=== PATIENT | male | born 1940 | race Caucasian/White ===

== ENCOUNTER → 2016-08-20 09:51 | Day surgery (SDC) | payer MEDICARE, BC ==
[~2016-08-20 09:51] MED LIST: Buffered Lidocaine 1% SYR 3ML* 3 ML/SYR SYRINGE INTRADERM ONE; Bupivacaine 0.25% W/EPI* 50 ML VIAL ONE; Bupivacaine 0.5% W/EPI SDV* 30 ML VIAL ONE; Famotidine IV* 10 MG/ML 2 ML (20 mg) IV ONE; Famotidine IV* 10 MG/ML 2 ML (20 mg) ONE; HYDROcodone/ACETAMIN 5-325 MG* 1 TAB PO PRN; Ibuprofen TAB* 600 MG PO PRN; KETAMINE HCL* 50 MG/ML 10 ML VIAL ONE; Lidocain 1% EPI 1:100,000 * 30 ML MDV ONE; Lidocaine 1% INJ* 10 MG/ML 30 ML SDV ONE; Lidocaine 2% PF * 5 ML VIAL ONE; Midazolam* 1 MG/ML 5 ML VIAL (5 MG) ONE; Morphine INJ* 2 MG/ML 1 ML CARPUJECT IV PRN; Ondansetron INJ* 2 MG/ML VIAL ONE; PROCHLORPERAZINE INJ 5 MG/ML 2 ML VIAL IV PRN; Propofol* 10 MG/ML 20 ML BTL IV PUSH ONE; ceFAZolin 2 GM PREMIX (*) 2 GM/50 ML BAG IVPB ONE; fentaNYL* 50 MCG/ML 2 ML VIAL (100 MCG VIAL) IV PRN; fentaNYL* 50 MCG/ML 2 ML VIAL (100 MCG VIAL) ONE; oxyCODONE/Acetamin 5/325 MG* TAB PO PRN
--- NOTE | 2016-08-20 13:15 | RAD ---
INDICATION: PowerPort placement COMPARISON: None FINDINGS: 8.2 seconds of fluoroscopy were provided for the surgical department. Fluoroscopic spot imaging of the chest were obtained for operative control and show left-sided PowerPort placement. A follow-up chest x-ray is pending . CPT II Codes: 6045F (fluoro time doc)
--- NOTE | 2016-08-20 13:54 | RAD ---
Indication: Postop port placement. T-cell lymphoma. Comparison: August 13, 2016 CT. Technique: Upright AP 1342 hours Report: Tip of LEFT chest port is at the level of the superior vena cava RIGHT atrial junction directed central. Negative for pneumothorax. Clear lungs and pleural spaces. The heart, pulmonary vasculature, and mediastinal contours are unremarkable. Post procedural subcutaneous emphysema noted at the LEFT supraclavicular region. IMPRESSION: Negative for pneumothorax post LEFT chest port placement.
[2016-08-20 14:50] VITALS: BP 120/74
--- NOTE | 2016-08-21 12:51 | OP ---
DATE OF OPERATION: 08/20/16 [facility] DATE OF : 40 SURGEON: Jose Chan MD INSTALLER MOLDING AND TRIM: None. ANESTHESIOLOGIST: Dr. Molina. ANESTHESIA: Local MAC. PRE-OP DIAGNOSIS: Lymphoma. POST-OP DIAGNOSIS: Lymphoma. OPERATIVE PROCEDURE: PowerPort placement, left subclavian and left supraclavicular excisional lymph node biopsy. ESTIMATED BLOOD LOSS: Minimal. IV FLUIDS: Crystalloids. SPECIMEN: Left supraclavicular lymph node. DRAINS: None. COMPLICATIONS: None. COUNTS: The instrument, needle, and sponge counts were correct. DESCRIPTION OF PROCEDURE: The patient was brought to the operating room and placed on the table supine. Sequential compression devices were placed on both lower extremities. He was administered intravenous sedation. His chest and neck were prepped and draped in the usual sterile fashion. He received appropriate antibiotics and time-out was performed. Local anesthetic was infiltrated for a left subclavian approach for the PowerPort placement. The left subclavian vein was cannulated after several passes with an 18- gauge needle and the guidewire was positioned in the superior vena cava under fluoroscopic guidance. The pocket was created for the port by infiltrating anesthetic into the upper left chest creating a transverse incision with a 15-blade scalpel and elevating the subcutaneous tissues off of the pectoralis. Once the pocket had been created and hemostasis assured, a counterincision was made at the guidewire insertion site and then 8-German PowerPort was back tunneled to the pocket. The dilator and peel-away sheath were advanced into the superior vena cava under fluoroscopic guidance and the dilator and the wire were removed. The catheter was inserted into the superior vena cava and its position confirmed under fluoroscopic guidance. The catheter was positioned at 23 cm. Then it was connected to the PowerPort and placed into the pocket. It was drawn and flushed easily. The port was secured in the pocket with a single suture of 2-0 Surgipro. The pocket was then closed with 3- 0 Polysorb in an interrupted fashion to close the subcutaneous tissues. The skin incisions were closed with 4-0 Monocryl in a subcuticular fashion. Next, the excision of lymph node biopsy was performed. A curvilinear incision was made along the collar line overlying the area of the palpable lymph node in the supraclavicular fossa. The subcutaneous tissues were divided with cautery as was the platysmal muscle. The lymph node was identified. It was bluntly dissected out and elevated from the underlying tissues, which included blood vessels coursing close by this. The lymph node was lentiform, approximately 1 cm x 1 cm x 0.5 cm. It was elevated off of the underlying structures dissected using a combination of blunt and sharp dissection with ligation of crossing lymphatics with either 4-0 Polysorb or with surgical clips. Once the lymph node was freed, it was sent fresh down to pathology for processing. Hemostasis was assured. The wound was closed with 3-0 Polysorb to close the platysma in a running fashion and the skin was again closed with 4-0 Monocryl in a running subcuticular fashion. Steri-Strips were applied to the sites with Tegaderm dressings. The patient tolerated the procedure well. He was transferred to the recovery room in a stable condition. CC: Yobany Green MD; Kuldip Flores MD * [id number]/[facility] #: [id number] [facility]
[2016-09-02 17:33] LABS: BLYMF Reason for Referral r/o double hit; BLYMF Tissue ID S17 1469
== END | disposition home or self-care (01) ==
LOC: OR 09:51
PROVIDERS: ATTEND Surgery
DX: C85.11 Unspecified B-cell lymphoma, lymph nodes of head, face, and neck (principal); I10 Essential (primary) hypertension; Z87.891 Personal history of nicotine dependence
CPT/HCPCS: 71010; 76000; 88184; 88185; 88188; 88271; 88275; 88291; 88307; 88341; 88342; C1788; J0690; J1642; J2250; J2405; J2704; J3010

== ENCOUNTER 2017-06-14 09:04 | Inpatient (IN) | payer MEDICARE, BC ==
[2017-06-14] MEDS ORDERED: oxyCODONE/Acetamin 5/325 MG* TAB PO PRN (10:39)
[2017-06-14] MEDS ORDERED: Acetaminophen TAB* 325 MG PO PRN (10:39)
[2017-06-14] MEDS ORDERED: Ondansetron INJ* 2 MG/ML VIAL IV PRN (10:39)
[2017-06-14] MEDS ORDERED: Senna TAB PO PRN (10:51)
[2017-06-14] MEDS ORDERED: QUEtiapine TAB* 100 MG PO PRN (10:51)
[2017-06-14] MEDS ORDERED: NS 0.9% 1000 ML* 1,000 ML IV ONE (12:00)
[2017-06-14] MEDS: Heparin VIAL(*) 5000 UNITS/ML VIAL (FIVE THOUSAND) SUBCUT SCH ×2 (12:39→21:46)
[2017-06-14] MEDS ORDERED: NS 0.9% IVPB ONE (14:00)
[2017-06-14] MEDS ORDERED: IFOSFAMIDE IVPB ONE (14:00)
[2017-06-14] MEDS ORDERED: MESNA IVPB ONE (14:00)
[2017-06-14] MEDS ORDERED: Allopurinol TAB* 300 MG PO SCH (18:00)
[2017-06-14] MEDS ORDERED: Lisinopril TAB* 10 MG PO SCH (21:00)
[2017-06-14] MEDS ORDERED: Zolpidem TAB* 10 MG PO SCH (21:00)
[2017-06-14] MEDS: Senna TAB PO SCH (21:46)
[2017-06-14] MEDS: Docusate CAP* 100 MG PO SCH (21:46)
[2017-06-15] MEDS: Heparin VIAL(*) 5000 UNITS/ML VIAL (FIVE THOUSAND) SUBCUT SCH ×2 (06:25→13:56)
[2017-06-15] MEDS: Docusate CAP* 100 MG PO SCH (08:51)
[2017-06-15] MEDS: Senna TAB PO SCH (08:51)
[2017-06-15] MEDS ORDERED: Atorvastatin* 10 MG TAB PO SCH (09:00)
[2017-06-15 11:20] LABS: Urine Bacteria Absent (Absent); Urine Bilirubin Negative (Negative); Urine Glucose 1+(50 mg/dL) (Negative); Urine Nitrite Negative (Negative)
[2017-06-15] MEDS ORDERED: Dexamethasone IV* 4 MG/ML 1 ML (4 MG) IV SLOW PU ONE (13:30)
[2017-06-15] MEDS ORDERED: ETOPOSIDE IVPB ONE (14:00)
[2017-06-15] MEDS ORDERED: NS 0.9% IVPB ONE (14:00)
[2017-06-15] MEDS ORDERED: NS 0.9% 1000 ML* 1,000 ML IV ONE (14:00)
--- NOTE | 2017-06-15 14:20 | DS ---
- Discharge Summary Admission Date: 06/14/2017 Discharge Date: 06/15/2017 Discharge Diagnosis: 1. Diffuse Large B-cell Lymphoma: recently recurrent, completing C1 RICE 2. Insomnia: seroquel appears to help Discharge Medications: 1. Acetaminophen 650 mg PO q4hrs PRN pain/fever 2. Colace 100 mg PO BID 3. Senna 1 tab PO BID 4. Seroquel 100 mg PO qHS PRN insomnia 5. Lisinopril 20 mg PO qPM 6. Simvastatin 20 mg PO daily 7. Zofran 4 mg PO q4hrs PRN nausea/vomiting 8. Compazine 10 mg PO q6hrs PRN nausea/vomiting 9. Filgrastin as instructed Hospital Course: Please see admission note for full H&P, however, briefly Mr. Stephenson is well known to our service d/t his unfortunate diagnosis of Large B-cell Lymphoma initially diagnosed in early 2016 and treated with RCHOP. Unfortunately he recently relapsed and has been started on induction treatment with plan for consultation in [place] for possible transplant. He started RICE chemotherapy on Sunday 06/10 (D1 minus 2) with Day 1 in the office on 06/13. He was treated as an outpatient through Day 2 at which time he was admitted for overnight ifos/[place]. He has done very well with this initial treatment with minimal side effects. He will complete cycle 1 today following Etoposide infusion and will be discharged home. He has been instructed to initiate Neupogen injections daily starting tomorrow (D4), though currently insurance approval is pending and he may require administration in the office (and this will be confirmed just prior to d/c). He has been instructed on how and when to call the office and will f/u on 06/23 with labs. All questions were answered. >40 min spent with >50% face to face counseling
[2017-06-15 17:48] VITALS: BP 143/68
== END 2017-06-15 17:30 | disposition home or self-care (01) | DRG 847 ==
LOC: INTOOBSV 10:39 → MED 10:39 → OBSVTOIN 10:39
PROVIDERS: ADMIT Internal Medicine Hematology & Oncology; ATTEND Internal Medicine Hematology & Oncology
DX: Z51.11 Encounter for antineoplastic chemotherapy (principal); C83.33 Diffuse large B-cell lymphoma, intra-abdominal lymph nodes; H91.93 Unspecified hearing loss, bilateral; E78.5 Hyperlipidemia, unspecified; I10 Essential (primary) hypertension; G47.00 Insomnia, unspecified; Z82.49 Family history of ischemic heart disease and other diseases of the circulatory system; Z80.0 Family history of malignant neoplasm of digestive organs
CPT/HCPCS: 36415; 36591; 62270; 80053; 81003; 81015; 82945; 83735; 84100; 84157; 85025; 87086; 88112; 88184; 88187; 88188; 89051; 96375; 96413; 96415; 96417; 99215; 99223; A9270-GY; G0463; J1100; J1200; J1642; J1644; J2469; J9045; J9181; J9209; J9280; J9310

== ENCOUNTER 2017-07-06 10:54 | Observation (INO) | payer MEDICARE, BC ==
[2017-07-06] MEDS ORDERED: [UNRECOGNIZED DRUG - OTHER] IV ONE (12:15)
[2017-07-06] MEDS ORDERED: NS 0.9% IV ONE (12:15)
[2017-07-06] MEDS ORDERED: Acetaminophen TAB* 325 MG PO PRN (12:24)
[2017-07-06] MEDS ORDERED: MESNA IVPB ONE (14:00)
[2017-07-06] MEDS ORDERED: IFOSFAMIDE IVPB ONE (14:00)
[2017-07-06] MEDS ORDERED: NS 0.9% IVPB ONE (14:00)
[2017-07-06] MEDS: Heparin VIAL(*) 5000 UNITS/ML VIAL (FIVE THOUSAND) SUBCUT SCH ×2 (14:28→21:28)
[2017-07-06] MEDS ORDERED: Senna TAB PO PRN (15:35)
[2017-07-06] MEDS ORDERED: Prochlorperazine TAB* 10 MG PO PRN (15:35)
[2017-07-06] MEDS ORDERED: Ondansetron TAB* 4 MG PO PRN (15:35)
[2017-07-06] MEDS ORDERED: Zolpidem TAB* 10 MG PO PRN (15:37)
[2017-07-06] MEDS ORDERED: QUEtiapine TAB* 100 MG PO SCH (21:00)
[2017-07-07] MEDS: Heparin VIAL(*) 5000 UNITS/ML VIAL (FIVE THOUSAND) SUBCUT SCH ×2 (06:15→14:28)
[2017-07-07] MEDS ORDERED: Lisinopril TAB* 10 MG PO SCH (09:00)
[2017-07-07 09:38] LABS: ABS Basophils 0 10^3/ul (0-0.2); ABS Eosinophils 0 10^3/ul (0-0.6); ABS Lymphocytes 0.2 10^3/ul (1.0-4.8); ABS Monocytes 0.3 10^3/ul (0-0.8); ABS Neutrophils 2.8 10^3/ul (1.5-7.7); ABS Nucleated RBC 0 10^3/ul; Eosinophil % 0.1 % (0-6); Hematocrit 21 % (42-52); Hemoglobin 6.9 g/dl (14.0-18.0); Lymphocyte % 5.4 % (25-47); Mean Corpuscular HGB Conc 33 g/dl (31-36); Mean Corpuscular Hemoglobin 30 pg (27-31); Mean Corpuscular Volume 91 fL (80-94); Mean Platelet Volume 7 um3 (7.4-10.4); Nucleated Red Blood Cells % 0; Platelet Count 360 10^3/ul (150-450); Red Blood Count 2.28 10^6/ul (4.0-5.4); Red Cell Distribution Width 14 % (10.5-15); White Blood Count 3.3 10^3/ul (3.5-10.8)
[2017-07-07] MEDS ORDERED: ETOPOSIDE IVPB ONE (14:00)
[2017-07-07] MEDS ORDERED: Dexamethasone IV* 4 MG/ML 1 ML (4 MG) IV SLOW PU ONE (14:00)
[2017-07-07] MEDS ORDERED: [UNRECOGNIZED DRUG - OTHER] IV ONE (14:00)
[2017-07-07] MEDS ORDERED: NS 0.9% IV ONE (14:00)
[2017-07-07] MEDS ORDERED: NS 0.9% IVPB ONE (14:00)
[2017-07-07 18:03] VITALS: BP 146/82
--- NOTE | 2017-07-08 09:53 | DS ---
DISCHARGE SUMMARY: DATE OF ADMISSION: 07/06/17 DATE OF DISCHARGE: 07/07/17 ATTENDING PHYSICIAN: Dr. Farheen Almodovar * (DICTATED BY LAN BROWNE NP) ADMISSION DIAGNOSES: 1. Recurrent lymphoma: Admitted for cycle 2 RICE. 2. Insomnia: Managed with current medications. DISCHARGE MEDICATIONS: 1. Neupogen 300 mcg subcutaneous x5 to 7 days depending on the patient's counts. 2. Seroquel 100 mg p.o. q.h.s. 3. Lisinopril 20 mg p.o. q. day. 4. Zofran 4 mg p.o. q.4 hours p.r.n. nausea. 5. Diazepam 10 mg p.o. q.h.s. p.r.n. sleep. 6. Compazine 10 mg p.o. q.6 hours p.r.n. nausea. 7. Acetaminophen 650 mg p.o. q.4 hours p.r.n. fever/pain, greater than 100.4 degrees Fahrenheit. 8. Senna 1 to 2 tabs p.o. b.i.d. p.r.n. constipation. HOSPITAL COURSE: Please see admission note for full H and P; however, briefly, Mr. Stephenson is well known to our service due to his unfortunate diagnosis of lymphoma, recently recurred. He admitted to the hospital 07/06/17 for completion of continuous infusion overnight treatment of cycle 2 RICE. On admission, Mr. Stephenson was feeling very well with a low H and H and he denied symptoms of severe fatigue and shortness of breath, noting the day prior he had worked most of the day outside. As such, without symptoms, his labs were monitored.. Mr. Stephenson received his treatment without difficulty and no complaints. He has had minimal side effects. On day of discharge, his H and H had dropped with the hemoglobin of 6.9 and the patient was agreeable to a transfusion. Risks and benefits were reviewed with the patient and 1 unit of packed red blood cells was transfused this afternoon. Completion of chemotherapy at approximately 1800 and the patient was discharged home with plan for Neupogen starting tomorrow, 07/08/17. He will follow up with Dr. Flores on 07/15/17 and will have repeat labs at that time. Mr. Stephenson is aware of signs and symptoms to contact the office for and denies questions. TIME SPENT: Greater than 40 minutes spent with greater than 50% [id number] counseling. [place] BROWNE NP [id number]/[facility] #: [id number] JOSEFINA
== END 2017-07-07 18:55 | disposition home or self-care (01) ==
LOC: MED 12:09
PROVIDERS: ADMIT Internal Medicine Hematology & Oncology; ATTEND Internal Medicine Hematology & Oncology
DX: Z51.11 Encounter for antineoplastic chemotherapy (principal); C85.90 Non-Hodgkin lymphoma, unspecified, unspecified site; C83.33 Diffuse large B-cell lymphoma, intra-abdominal lymph nodes; G47.00 Insomnia, unspecified; E78.5 Hyperlipidemia, unspecified; I10 Essential (primary) hypertension; Z87.891 Personal history of nicotine dependence
CPT/HCPCS: 36415; 36430; 36591; 85025; 86850; 86900; 86901; 86922; 96372; 96375; 96413; 96417; 99214; 99223; 99239; A9270-GY; G0378; G0463; J1100; J1642; J1644; J9045; J9181; J9209; J9280; P9040

== ENCOUNTER 2017-07-27 07:54 | Observation (INO) | payer MEDICARE, BC ==
[2017-07-27] MEDS ORDERED: Prochlorperazine TAB* 10 MG PO PRN (13:04)
[2017-07-27] MEDS ORDERED: Diazepam TAB(*) 10 MG PO PRN (13:04)
[2017-07-27] MEDS ORDERED: Acetaminophen TAB* 325 MG PO PRN ×2 (13:04→13:06)
[2017-07-27] MEDS ORDERED: Senna TAB PO PRN (13:04)
[2017-07-27] MEDS ORDERED: Ondansetron INJ* 2 MG/ML VIAL IV PRN (13:06)
[2017-07-27] MEDS ORDERED: oxyCODONE/Acetamin 5/325 MG* TAB PO PRN (13:06)
[2017-07-27] MEDS ORDERED: NS 0.9% 1000 ML* 1,000 ML IV SCH (13:15)
[2017-07-27] MEDS ORDERED: IFOSFAMIDE IVPB ONE (13:30)
[2017-07-27] MEDS ORDERED: NS 0.9% IVPB ONE (13:30)
[2017-07-27] MEDS ORDERED: MESNA IVPB ONE (13:30)
[2017-07-27] MEDS: Enoxaparin(*) 40 MG/0.4 ML SYR SUBCUT SCH (14:39)
[2017-07-27 14:51] LABS: Urine Appearance Clear; Urine Blood Negative (Negative); Urine Color Straw; Urine Ketones Trace (Negative); Urine Protein Negative (Negative); Urine Specific Gravity 1.008 (1.010-1.030); Urine Urobilinogen Negative (Negative)
[2017-07-27] MEDS ORDERED: QUEtiapine TAB* 25 MG PO SCH (21:00)
[2017-07-28 08:20] VITALS: BP 135/74
[2017-07-28 08:40] LABS: ABS Basophils 0 10^3/ul (0-0.2); ABS Eosinophils 0 10^3/ul (0-0.6); ABS Lymphocytes 0.4 10^3/ul (1.0-4.8); ABS Monocytes 0.4 10^3/ul (0-0.8); ABS Neutrophils 3.4 10^3/ul (1.5-7.7); ABS Nucleated RBC 0 10^3/ul; Eosinophil % 0 % (0-6); Hematocrit 24 % (42-52); Lymphocyte % 9.2 % (25-47); Mean Corpuscular HGB Conc 33 g/dl (31-36); Mean Corpuscular Hemoglobin 30 pg (27-31); Mean Corpuscular Volume 90 fL (80-94); Mean Platelet Volume 8 um3 (7.4-10.4); Nucleated Red Blood Cells % 0; Platelet Count 192 10^3/ul (150-450); Red Blood Count 2.68 10^6/ul (4.0-5.4); Red Cell Distribution Width 15 % (10.5-15); White Blood Count 4.2 10^3/ul (3.5-10.8)
--- NOTE | 2017-07-28 10:13 | DS ---
- Discharge Summary Brief OBV discharge summary Admit date: 07/27/2017 discharge date: 07/28/2017 discharge diagnoses: 1. inpatient chemotherapy 2. relapsed diffuse large b cell lymphoma discharge medications: Home Medications Medication Instructions Recorded Confirmed Type QUEtiapine TAB* [Seroquel TAB*] 100 mg PO BEDTIME 08/09/16 07/27/17 History Compazine Tab* 10 mg PO Q6HR PRN 06/14/17 07/27/17 History Diazepam 10 mg PO BEDTIME PRN 06/14/17 07/27/17 History Zofran 4 MG TAB 4 mg PO Q4HR PRN 06/14/17 07/27/17 History Acetaminophen TAB* [Tylenol TAB*] 650 mg PO Q4H PRN tab 06/15/17 07/27/17 Rx Senna TAB* [Senokot TAB*] 1 - 2 tab PO BID PRN 07/05/17 07/27/17 History Potassium Chlor TAB* [Potassium 20 meq PO DAILY 07/27/17 07/27/17 History Chlor TAB 20 MEQ*] Filgrastim [Neupogen] 300 mcg IJ DAILY 10 Days inj 07/28/17 Rx discharge follow up: PET scan followed by Dr. Flores 08/09 at 12:40 pm hospital course: see full admit H+P, briefly 77 yo M w recurrent DLBCL presenting for cycle 3 of salvage R-ICE chemotherapy. He tolerated this quite well and will be discharged home to start neupogen per protocol. He will have an outpatient PET scan and follow up with Dr. Flores to decide next course of treatment.
[2017-07-28] MEDS: Dexamethasone IV* 4 MG/ML 1 ML (4 MG) IV SLOW PU ONE ×2 (14:00→14:56)
[2017-07-28] MEDS: Enoxaparin(*) 40 MG/0.4 ML SYR SUBCUT SCH (14:00)
[2017-07-28] MEDS ORDERED: [UNRECOGNIZED DRUG - OTHER] IV ONE (14:00)
[2017-07-28] MEDS ORDERED: ETOPOSIDE IVPB ONE (14:00)
[2017-07-28] MEDS ORDERED: NS 0.9% IV ONE (14:00)
[2017-07-28] MEDS ORDERED: NS 0.9% IVPB ONE (14:00)
== END 2017-07-28 17:33 | disposition home or self-care (01) ==
LOC: INTOOBSV 12:45 → MEDTELE 12:45
PROVIDERS: ADMIT Internal Medicine Hematology & Oncology; ATTEND Internal Medicine Hematology & Oncology
DX: C83.30 Diffuse large B-cell lymphoma, unspecified site (principal); Z51.11 Encounter for antineoplastic chemotherapy; Z87.891 Personal history of nicotine dependence
CPT/HCPCS: 36415; 81003; 85025; 99217; 99220; A9270-GY; G0378; J1100; J1642; J1650; J9181; J9209; J9280

== ENCOUNTER 2017-08-23 20:50 | Inpatient (IN) | payer MEDICARE, BC ==
[2017-08-23 23:16] LABS: ABS Basophils 0 10^3/ul (0-0.2); ABS Eosinophils 0 10^3/ul (0-0.6); ABS Lymphocytes 0.4 10^3/ul (1.0-4.8); ABS Monocytes 0.4 10^3/ul (0-0.8); ABS Neutrophils 4.1 10^3/ul (1.5-7.7); ABS Nucleated RBC 0 10^3/ul; Eosinophil % 0.1 % (0-6); Hematocrit 26 % (42-52); Hemoglobin 8.6 g/dl (14.0-18.0); Lymphocyte % 7.5 % (25-47); Mean Corpuscular HGB Conc 33 g/dl (31-36); Mean Corpuscular Hemoglobin 32 pg (27-31); Mean Corpuscular Volume 97 fL (80-94); Mean Platelet Volume 8 um3 (7.4-10.4); Nucleated Red Blood Cells % 0.1; Platelet Count 133 10^3/ul (150-450); Red Blood Count 2.68 10^6/ul (4.0-5.4); Red Cell Distribution Width 24 % (10.5-15); White Blood Count 4.9 10^3/ul (3.5-10.8)
[2017-08-24] MEDS ORDERED: NS 0.9% 1000 ML* 1,000 ML IV ONE ×2 (00:13→01:32)
[2017-08-24 01:28] LABS: Urine Appearance Clear; Urine Blood Negative (Negative); Urine Color Yellow; Urine Ketones Trace (Negative); Urine Protein 1+(30 mg/dL) (Negative); Urine Specific Gravity 1.017 (1.010-1.030); Urine Urobilinogen Negative (Negative)
[2017-08-24] MEDS ORDERED: Ondansetron INJ* 2 MG/ML VIAL IV ONE (01:31)
[2017-08-24] MEDS ORDERED: Metoclopramide IV* 5 MG/ML 2 ML VIAL IV ONE (03:27)
[2017-08-24] MEDS ORDERED: Iodixanol* (CONTRAST) 320 MG/ML 100 ML SDV IV ONE (04:08)
[2017-08-24] MEDS ORDERED: Ondansetron INJ* 2 MG/ML VIAL IV PRN (05:10)
[2017-08-24] MEDS ORDERED: Prochlorperazine TAB* 10 MG PO PRN (05:12)
[2017-08-24] MEDS: NS 0.9% 1000 ML* 1,000 ML IV SCH (05:22)
--- NOTE | 2017-08-24 05:39 | ED ---
Sudeep Leon Nilda, scribed for Shady Delvalle MD on 08/24/17 at 0004 . Neurological HPI - HPI Summary HPI Summary: This patient is a 77 year old M presenting to [facility] accompanied by family with a chief complaint of constant weakness for the past 3 days. The patient rates the pain 0/10 in severity. Symptoms aggravated and alleviated by nothing. Family reports confusion, increased falling (last fall 3 days ago, landed on coccyx), unsteadiness, and bilat LE soreness secondary to ambulation. Patient denies cough, fever, dysuria, and melena. Family denies head injury. PMHx includes B cell lymphoma (treated with chemotherapy, in remission a few weeks ago) and port in chest. - History of Current Complaint Chief Complaint: EDGeneral Stated Complaint: AMS/WEAKNESS Time Seen by Provider: 08/23/17 23:52 Hx Obtained From: Patient, Family/Rod Hanger Onset/Duration: Sudden Onset, Started days ago, Still Present Timing: Constant Neurological Deficit Location: Generalized Pain Intensity: 0 Pain Scale Used: 0-10 Numeric Character: Weak, Other: - confusion Aggravating: Nothing Alleviating: Nothing Associated Signs and Symptoms: Positive: Unsteady Gait, Confusion. Negative: Fever - Additional Pertinent History Primary Care Physician: [id number] - Allergy/Home Medications Allergies/Adverse Reactions: Allergies Allergy/AdvReac Type Severity Reaction Status Date / Time No Known Allergies Allergy Verified 08/23/17 21:21 PMH/Surg Hx/FS Hx/Imm Hx Endocrine/Hematology History: Reports: Other Endocrine/Hematological Disorders - chemo, anemia Denies: Hx Diabetes Cardiovascular History: Reports: Hx Hypercholesterolemia, Hx Hypertension Respiratory History: Reports: Other Respiratory Problems/Disorders - insomnia GI History: Reports: Other GI Disorders - constipation History: Denies: Hx Dialysis, Hx Renal Disease Sensory History: Reports: Hx Contacts or Glasses Denies: Hx Hearing Aid Opthamlomology History: Reports: Hx Contacts or Glasses Psychiatric History: Reports: Other Psychiatric Issues/Disorders - insomnia - Cancer History Cancer Type, Location and Year: lymphoma Hx Chemotherapy: Yes - Surgical History Surgery Procedure, Year, and Place: port placed, lymph node removed Infectious Disease History: No Infectious Disease History: Denies: Traveled Outside the [place] in Last 30 Days - Family History Known Family History: Positive: None - reviewed and noncontributory - Social History Alcohol Use: None Substance Use Type: Reports: None Smoking Status (MU): Former Smoker Type: Cigarettes Amount Used/How Often: 1 pack/day Length of Time of Smoking/Using Tobacco: 27 years Have You Smoked in the Last Year: No Review of Systems Negative: Fever Negative: Cough Positive: Other - negative melena Negative: dysuria Positive: Other - bilat LE soreness secondary to ambulation Neurological: Other - confusion, increased falling, unsteadiness; negative head injury Positive: Weakness All Other Systems Reviewed And Are Negative: Yes Physical Exam - Summary Physical Exam Summary: Appearance: Well appearing, no pain distress, cachectic Skin: warm, dry, slightly pale Head/face: normal except edentulous Eyes: EOMI, ELSIE ENT: normal, moist mucous membranes Neck: supple, non-tender Respiratory: CTA, breath sounds present Cardiovascular: RRR, pulses symmetrical Abdomen: non-tender, soft Bowel: present Musculoskeletal: normal, strength/ROM intact Neuro: sensory motor intact, Oriented but difficulty maintaining train of thought, NIH= 0, no focal neuro deficits. GCS: 15 Triage Information Reviewed: Yes Vital Signs On Initial Exam: Initial Vitals Temp Pulse Resp BP Pulse Ox 99.0 F 80 16 121/66 96 08/23/17 21:10 08/23/17 21:10 08/23/17 21:10 08/23/17 21:10 08/23/17 21:10 Vital Signs Reviewed: Yes - Gigi Coma Scale Best Eye Response: 4 - Spontaneous Best Motor Response: 6 - Obeys Commands Best Verbal Response: 5 - Oriented Coma Scale Total: 15 Diagnostics - Vital Signs Vital Signs Temp Pulse Resp BP Pulse Ox 08/23/17 23:50 67 15 124/81 100 08/23/17 21:10 99.0 F 80 16 121/66 96 - Laboratory Lab Results: Lab Results 08/23/17 08/23/17 08/23/17 Range/Units 22:26 22:26 22:26 WBC 4.9 (3.5-10.8) 10^3/ul RBC 2.68 L (4.0-5.4) 10^6/ul Hgb 8.6 L (14.0-18.0) g/dl Hct 26 L (42-52) % MCV 97 H (80-94) fL MCH 32 H (27-31) pg MCHC 33 (31-36) g/dl RDW 24 H (10.5-15) % Plt Count 133 L (150-450) 10^3/ul MPV 8 (7.4-10.4) um3 Neut % (Auto) 83.3 H (38-83) % Lymph % (Auto) 7.5 L (25-47) % [place] % (Auto) 8.6 (1-9) % Eos % (Auto) 0.1 (0-6) % Baso % (Auto) 0.5 (0-2) % Absolute Neuts (auto) 4.1 (1.5-7.7) 10^3/ul Absolute Lymphs (auto) 0.4 L (1.0-4.8) 10^3/ul Absolute Monos (auto) 0.4 (0-0.8) 10^3/ul Absolute Eos (auto) 0 (0-0.6) 10^3/ul Absolute Basos (auto) 0 (0-0.2) 10^3/ul Absolute Nucleated RBC 0 10^3/ul Nucleated RBC % 0.1 Hem Pathologist Commnt Pending Sodium 138 (133-145) mmol/L Potassium 3.7 (3.5-5.0) mmol/L Chloride 103 (101-111) mmol/L Carbon Dioxide 27 (22-32) mmol/L Anion Gap 8 (2-11) mmol/L BUN 27 H (6-24) mg/dL Creatinine 1.25 H (0.67-1.17) mg/dL Est GFR ( Amer) 72.0 (>60) Est GFR (Non-Af Amer) 56.0 (>60) BUN/Creatinine Ratio 21.6 H (8-20) Glucose 111 H (70-100) mg/dL Lactic Acid 1.0 (0.5-2.0) mmol/L Calcium 9.6 (8.6-10.3) mg/dL Magnesium 2.1 (1.9-2.7) mg/dL Total Bilirubin 0.80 (0.2-1.0) mg/dL AST 18 (13-39) U/L ALT 7 (7-52) U/L Alkaline Phosphatase 64 (34-104) U/L Troponin I 0.02 (<0.04) ng/mL Total Protein 7.3 (6.4-8.9) g/dL Albumin 4.5 (3.2-5.2) g/dL Globulin 2.8 (2-4) g/dL Albumin/Globulin Ratio 1.6 (1-3) TSH 3.51 (0.34-5.60) mcIU/mL Result Diagrams: 08/23/17 22:26 08/23/17 22:26 Lab Statement: Any lab studies that have been ordered have been reviewed, and results considered in the medical decision making process. - Radiology CXR Radiology Interpretation Completed By: ED Physician - no acute pulmonary disease. Degenerative changes of the right shoulder. - CT Head CT Interpretation Completed By: Radiologist - CT Brain, per radiologist, reveals no acute intracranial pathology. Dr. Delvalle reviewed this report. Abd/Pel CT Interpretation Completed By: Radiologist - CT Abd/Pel, per radiologist, reveals mild/moderate right hydronephrosis and perinephric inflammation may be secondary to a recently passed stone. Dr. Delvalle has reviewed this report. - EKG 2221 Cardiac Rate: NL EKG Rhythm: Sinus Rhythm - [address] Segment: Normal EKG Interpretation: nml axis, long QTc 504 NIH Scale - NIH Scale Level of Consciousness: Alert/Keenly Responsive Ask Patient the Month and His/Her Age: Both Correct Ask Pt to Open/Close Eyes and Materials Scientist/Release Non-Paretic Hand: Both Correctly Best Gaze (Only Horizontal Eye Movement): Normal Visual Field Testing: No Visual Loss Facial Paresis-Pt to Smile & Close Eyes or Grimace Symmetry: Normal/Symmetrical Motor Function - Right Arm: No Drift-Holds 10 Seconds Motor Function - Left Arm: No Drift-Holds 10 Seconds Motor Function - Right Leg: No Drift-Holds 10 Seconds Motor Function - Left Leg: No Drift-Holds 10 Seconds Limb Ataxia-Must be out of Proportion to Weakness Present: Absent Sensory (Use Pinprick to Test Arms/Legs/Trunk/Face): Normal Best Language (Describe Picture, Name Items): No Aphasia Dysarthria (Read Several Words): Normal Extinction and Inattention: No Abnormality Total Score: 0 Re-Evaluation - Re-Evaluation First Eval Re-Evaluation Time: 03:09 Comment: Vomiting a couple hours ago, but doing ok now. Will try to ambulate him. Second Eval Re-Evaluation Time: 03:27 Comment: Pt still vomiting. Discussed plan to admit pt. Course/Dx - Course Assessment/Plan: An EKG reveals NSR 67 bpm, nl axis, nl ST, long QTc 504. CXR reveals no acute pulmonary disease. Degenerative changes of the right shoulder. CT Brain, per radiologist, reveals no acute intracranial pathology. Dr. Delvalle reviewed this report. CT Abd/Pel, per radiologist, reveals mild/ moderate right hydronephrosis and perinephric inflammation may be secondary to a recently passed stone. Dr. Delvalle has reviewed this report. [0330] Dr. Segovia (hospitalist) agrees to admit pt. CT was pending -- it revealed possibility of recently passed stone. No SBO. Pt urine is neg for blood etc. Admit for further. - Differential Dx Differential Diagnoses Neuro: Positive: Coronary Artery Disease, Hypovolemia, Medication Reaction, Metabolic Abnormality, Viral Syndrome - Diagnoses Provider Diagnoses: Vomiting, Generalized weakness, History of lymphoma - Physician Notifications Discussed Care Of Patient With: Janine Segovia - Hospitalist Time Discussed With Above Provider: 03:30 Instructed by Provider To: Admit As Inpatient - Critical Care Time Critical Care Time: 30-74 min - exclusive of separately billable procedures; includes mult reeval/bedside time, c/s with family and complex MDM Discharge - Discharge Plan Condition: Stable Disposition: ADMITTED TO [facility] Referrals: Yobany Green MD [Primary Care Provider] - The documentation as recorded by the Sudeep cat Nilda accurately reflects the service I personally performed and the decisions made by , Sahdy Delvalle MD.
--- NOTE | 2017-08-24 07:48 | RAD ---
Indication: Weakness. 2 views of the chest demonstrate no mediastinal shift. Heart is of normal size and configuration. Lung centeno demonstrate no pleural fluid, pneumonia or pneumothorax. Central line is in place. IMPRESSION: No active cardiopulmonary disease is noted.
--- NOTE | 2017-08-24 07:57 | RAD ---
INDICATION: Confusion. COMPARISON: There are no prior studies available for comparison. TECHNIQUE: Contiguous axial sections of the brain were obtained from the skull base to the vertex without contrast. FINDINGS: The ventricles, cisterns and sulci are enlarged consistent with diffuse atrophy. No significant focal abnormality or mass effect is seen. There is no evidence for hemorrhage. There is opacification of the visualized portion of the right maxillary sinus with sclerotic wall suggestive of chronic sinusitis. The visualized portion of the paranasal sinuses and mastoid air cells otherwise appear clear. IMPRESSION: 1. NO EVIDENCE FOR ACUTE INTRACRANIAL ABNORMALITY. 2. FINDINGS SUGGESTIVE OF CHRONIC RIGHT MAXILLARY SINUSITIS.
[2017-08-24] MEDS: Heparin VIAL(*) 5000 UNITS/ML VIAL (FIVE THOUSAND) SUBCUT SCH ×3 (09:01→22:25)
--- NOTE | 2017-08-24 09:21 | RAD ---
Indication: Vomiting, weakness. Contrast: Administered 71.2 ml of VISIPAQUE 320 mg/ml. CT of the abdomen and pelvis was performed after IV contrast administration. Coronal and sagittal reconstructed images were obtained. The lung bases demonstrate no pleural fluid, nodules or masses. Heart is of normal size without evidence of pericardial effusion. The liver is normal in size. No focal lesions or intrahepatic duct dilatation is noted. Gallbladder demonstrates no calcified gallstones. No pericholecystic fluid or wall thickening is noted. Pancreas demonstrates no mass or pancreatic duct dilatation. Common duct is not dilated. The spleen is normal in size. No adrenal lesions are noted. The kidneys demonstrate right hydronephrosis. The right kidney appears to be smaller than the left. There is suggestion of right hydroureter noted. There is suggestion of a tiny calcification at the right ureterovesicular junction. There is delay in excretion of the right kidney. The left kidney demonstrates a cortical cyst in the upper pole of the left kidney measuring 2.2 cm. There is an atherosclerotic aorta noted. Minimal ectasia of the infrarenal abdominal aorta measuring up to 2.6 cm is noted. Common iliac arteries are unremarkable. The urinary bladder is unremarkable. CT of the pelvis demonstrates the urinary bladder to be distended. No hernias are identified. No dilated loops of bowel are noted. The colon is filled with stool. There is fluid in the fundus of the stomach. IMPRESSION: 1. Right hydronephrosis with mildly atrophic right kidney with dilated right ureter. There is suggestion of a tiny calculus at the right ureterovesicular junction. 2. Perinephric infiltration of fat is noted.
[2017-08-24] MEDS: Potassium Chlor TAB* 20 MEQ TAB.ER PO SCH (09:25)
--- NOTE | 2017-08-24 13:41 | HP ---
CC: Dr. Green; Dr. Flores.* HISTORY AND PHYSICAL: DATE OF ADMISSION: 08/24/17. PRIMARY CARE PROVIDER: Dr. Green. ONCOLOGIST: Dr. Flores. CHIEF COMPLAINT: Weakness. HISTORY OF PRESENT ILLNESS: Mr. Stephenson is a 77-year-old male with a history of diffuse large B-cell lymphoma who reportedly ended up in chemotherapy approximately 1 month ago. He had a recent PET scan and was told by Dr. Flores that he needed no more chemotherapy. He had been feeling fine up until several days ago when he began to develop weakness. The patient notes that he has been walking quite slowly. He has fallen a couple of times. He has had difficulty getting up from chairs. His domestic partner has noted that he has been mildly confused, though she states that he is slightly better now. He denies any recent illnesses. He does admit to vomiting that started approximately 3 days ago. No diarrhea. He has had no sick contacts recently. Of note, the patient did take a fall approximately 4 days ago and when he fell he hit what sounds to be his lower spine or tailbone. Despite that, he has been able to ambulate. PAST MEDICAL HISTORY: 1. Diffuse large B-cell lymphoma. 2. Hypertension. 3. Hyperlipidemia. 4. Insomnia. PAST SURGICAL HISTORY: None. MEDICATIONS: 1. Zofran 4 mg p.o. q. 4 hours p.r.n. nausea. 2. Senna 1-2 tabs p.o. b.i.d. p.r.n. constipation. 3. Seroquel 100 mg p.o. q.h.s. 4. Potassium chloride 20 mEq p.o. daily. 5. Neupogen 300 mcg. 6. Diazepam 10 mg p.o. q.h.s. p.r.n. insomnia. 7. Compazine 10 mg p.o. q. 6 hours p.r.n. nausea. 8. Tylenol 650 mg mg p.o. q. 4 hours p.r.n. pain. ALLERGIES: No known drug allergies. FAMILY HISTORY: Mom and dad both had coronary artery disease. SOCIAL HISTORY: The patient is a former smoker. He quit approximately 12 years ago. He does not drink alcohol. He is retired. 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 He is not . He has 4 children. He has a domestic partner, her name is Sofía and she would be the surrogate decision maker. REVIEW OF SYSTEMS: Patient denies any fever or chills. He admits to fluctuating appetite; however, most recently his appetite has been poor. No chest pain. No edema. No palpitations. No cough. He does complain of some mild shortness of breath. He admits to the nausea and vomiting as above. No abdominal pain. He admits to constipation. No hematochezia. No hematuria. No dysuria. He admits to generalized weakness. He feels most weak from the knee to the ankle bilaterally. No sudden change of vision. No dysphagia. No joint pains or muscle pains out of ordinary. No rashes. He does admit to some depression, which followed his son being murdered and his domestic partner's mother passing. PHYSICAL EXAMINATION GENERAL: The patient is a well-developed, cachectic, elderly male, lying in the bed, in no acute distress. VITAL SIGNS: Blood pressure 122/70, pulse 68, respirations 15, temp 98.2, O2 sat 97% on room air. HEENT: Pupils are equal and round and reactive to light. Extraocular muscles are intact. Oropharynx is clear. Oral mucosa is moist. PULMONARY: Lungs are clear to auscultation bilaterally. CARDIAC: Normal S1, S2. Regular rate and rhythm. I do not appreciate any murmurs. There is no lower extremity edema. ABDOMEN: Bowel sounds are present. Abdomen is scaphoid, soft, nontender, nondistended. MUSCULOSKELETAL: There is no cyanosis or clubbing of the digits. There is full active range of motion of all 4 extremities. NEURO: Cranial nerves II through XII are grossly intact. Sensation is intact to light touch throughout. Strength is 5/5 and symmetric in both upper and lower extremities bilaterally. PSYCH: The patient is alert. He is oriented x3. He is somewhat of a poor historian. SKIN: Warm and dry. There are no rashes. DIAGNOSTIC STUDIES/LAB DATA: WBC 4.9, hemoglobin 8.6, hematocrit 26, platelets 133. Sodium 138, potassium 3.7, chloride 103, CO2 27, BUN 27, creatinine 1.25, glucose 111, lactic acid 1.0, calcium 9.6, magnesium 2.1. Bilirubin 0.8, AST 18, ALT 7, alk phos 64. CPK 118, troponin 0.02. Albumin 4.5. TSH 3.51. Urinalysis reveals a specific gravity of 1.017, trace ketones and otherwise negative. CT abdomen and pelvis: There is [id number] right hydronephrosis and perinephric inflammation which may be secondary to a recently passed stone. CT brain: There is no acute intracranial pathology. ASSESSMENT AND PLAN: Mr. Stephenson is a 77-year-old male with a history of diffuse large B-cell lymphoma, who completed chemotherapy approximately 1 month ago who presents to the emergency room with complaints of several days of weakness and falls. 1. Weakness. The etiology of this is not completely clear. There is no gross evidence of infection. The patient has normal strength on exam. I questioned if the patient may be somewhat volume deplete leading to his weakness as his appetite has been poor and he has not been eating or drinking well per his partner. The patient has received fluid in the emergency room, though I will continue him on normal saline at 100 mL per hour. PT eval will be requested. The patient will be monitored for clear signs or symptoms that could indicate the cause to his weakness. The patient did have a fall where he hit lower spine or tailbone; however, he has a nonfocal exam and that is why I am not very concerned that he caused damage with the fall leading to his weakness. 2. Intermittent nausea and vomiting. The patient will continue on p.r.n. Compazine and Zofran. There is no evidence that the vomiting that the patient is currently having is gastroenteritis. 3. Hypertension. The patient is off all antihypertensives. We will monitor his blood pressure. 4. Insomnia. We will continue Seroquel at bedtime. 5. DVT prophylaxis. According to the Adult Thrombosis Prophylaxis Risk Factor Assessment Guide, the patient has a total risk factor score of 5 making him the highest risk. He will be placed on heparin 5000 units subcutaneous q. 8 hours 6. Code Status is full and again the patient indicates that his partner, Sofía, is his healthcare proxy. TIME SPENT: Sixty five minutes spent admitting this patient. [id number]/[facility] [place] #: [id number] JOSEFINA
[2017-08-24] MEDS: Acetaminophen TAB* 325 MG PO PRN (14:30)
--- NOTE | 2017-08-24 15:01 | PN ---
Progress Note - Progress Note Date of Service: 08/24/17 SOAP: Subjective: []Did well for a month after chemotherapy. Then progressive weakness, difficulty walking. Knees would just give out on him, fell several times. Has had nausea and OZUNA as well. Nausea and decreased appetite. Eating very little. No fever or chills, no LAD Acetaminophen (Tylenol Tab*) 650 mg PO Q4H PRN PRN Reason: FEVER/PAIN Last Admin: 08/24/17 14:30 Dose: 650 mg Heparin Sodium (Porcine) (Heparin Vial(*)) 5,000 units SUBCUT Q8HR [facility] Last Admin: 08/24/17 14:32 Dose: 5,000 units Sodium Chloride (Ns 0.9% 1000 Ml*) 1,000 mls @ 100 mls/hr IV PER RATE [facility] Last Admin: 08/24/17 05:22 Dose: 100 mls/hr Ondansetron HCl (Zofran Inj*) 4 mg IV Q6H PRN PRN Reason: NAUSEA Potassium Chloride (Klor Con Er Tab*) 20 meq PO DAILY [facility] Last Admin: 08/24/17 09:25 Dose: 20 meq Prochlorperazine (Compazine Tab*) 10 mg PO Q6H PRN PRN Reason: NAUSEA Quetiapine Fumarate (Seroquel Tab*) 100 mg PO BEDTIME [facility] Objective: [] Vital Signs Temp Pulse Resp BP Pulse Ox 98.2 F 75 16 113/60 100 08/24/17 11:36 08/24/17 11:36 08/24/17 11:36 08/24/17 11:36 08/24/17 11:36 HEENT: Mucosa moist, no lesions. thin CTA RRR S1S2 Abd NT ND, no spleen Neuro 3-4/5 strength, CN 2-12 intact and normal mentation. did now walk Assessment: []Progressive weakness after induction therapy for recurrent DLBCL. PT report shows marked decline from last clinic visit when he was fully mobile. He is at very high risk of recurrence and had decided against consultative stem cell transplant. 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 Plan: []1. Check LDH, B2M, ESR and CRP 2. MRI brain 3. Continue IVF 4. If MRI brain negative, LP and MRI of spine.
[2017-08-24] MEDS ORDERED: Gadoteridol* (CONTRAST) 279.3 MG/ML 10 ML IV ONE (18:09)
--- NOTE | 2017-08-24 18:34 | RAD ---
INDICATION: Confusion. History of B-cell lymphoma COMPARISON: CT brain August 24, 2017 TECHNIQUE: sagittal T1 FLAIR, axial diffusion, axial T1 FLAIR, axial T2, axial T2 FLAIR, and SWI images were acquired. FINDINGS: Craniocervical junction: The craniocervical junction appears normal. Ventricles/sulci: There is age-related cortical atrophy with compensatory dilatation of the CSF spaces. Brain parenchyma: There are minor T2-weighted hyperintensities in periventricular and subcortical locations consistent with mild chronic microvascular ischemia. There is no evidence of intracranial mass or mass effect. The diffusion weighted images show no evidence of acute ischemia. Intracranial hemorrhage: There is no intracranial hemorrhage. Extra-axial spaces: There are no extra-axial fluid collections or masses. Orbits: There are no MR abnormalities of the orbital structures. Paranasal sinuses/mastoid: There are findings of chronic right maxillary antral sinusitis The remaining paranasal sinuses are clear. The mastoid air cells are well aerated.. Vascular: No abnormalities are seen. Other: None IMPRESSION: NONCONTRAST IMAGING SHOWS NO ACUTE INTRACRANIAL FINDINGS. AGE-RELATED INVOLUTIONAL CHANGES. MILD CHRONIC MICROVASCULAR ISCHEMIC CHANGES. CHRONIC RIGHT MAXILLARY ANTRAL SINUSITIS.
[2017-08-24] MEDS: QUEtiapine TAB* 100 MG PO SCH (22:25)
[2017-08-25] MEDS: NS 0.9% 1000 ML* 1,000 ML IV SCH ×2 (02:10→13:41)
[2017-08-25] MEDS: Heparin VIAL(*) 5000 UNITS/ML VIAL (FIVE THOUSAND) SUBCUT SCH ×3 (05:08→21:53)
[2017-08-25 05:25] LABS: Hematocrit 21 % (42-52); Hemoglobin 7.3 g/dl (14.0-18.0); Mean Corpuscular HGB Conc 34 g/dl (31-36); Mean Corpuscular Hemoglobin 33 pg (27-31); Mean Corpuscular Volume 97 fL (80-94); Mean Platelet Volume 8 um3 (7.4-10.4); Platelet Count 109 10^3/ul (150-450); Red Cell Distribution Width 25 % (10.5-15)
[2017-08-25 05:35] LABS: EGFR Non-African American 62.9 (>60)
[2017-08-25] MEDS: Potassium Chlor TAB* 20 MEQ TAB.ER PO SCH (08:55)
--- NOTE | 2017-08-25 09:36 | PN ---
Progress Note - Progress Note Date of Service: 08/25/17 SOAP: Subjective: []No better. Not eating. Weak. Not in pain. No fevers. Acetaminophen (Tylenol Tab*) 650 mg PO Q4H PRN PRN Reason: FEVER/PAIN Last Admin: 08/24/17 14:30 Dose: 650 mg Heparin Sodium (Porcine) (Heparin Vial(*)) 5,000 units SUBCUT Q8HR [facility] Last Admin: 08/25/17 05:08 Dose: 5,000 units Sodium Chloride (Ns 0.9% 1000 Ml*) 1,000 mls @ 100 mls/hr IV PER RATE [facility] Last Admin: 08/25/17 02:10 Dose: 100 mls/hr Ondansetron HCl (Zofran Inj*) 4 mg IV Q6H PRN PRN Reason: NAUSEA Last Admin: 08/24/17 15:04 Dose: 4 mg Potassium Chloride (Klor Con Er Tab*) 20 meq PO DAILY [facility] Last Admin: 08/25/17 08:55 Dose: 20 meq Prochlorperazine (Compazine Tab*) 10 mg PO Q6H PRN PRN Reason: NAUSEA Quetiapine Fumarate (Seroquel Tab*) 100 mg PO BEDTIME [facility] Last Admin: 08/24/17 22:25 Dose: 100 mg Objective: [] Vital Signs Temp Pulse Resp BP Pulse Ox 98.3 F 76 16 128/65 97 08/25/17 05:07 08/25/17 05:07 08/25/17 05:07 08/25/17 05:07 08/25/17 05:07 HEENT: Mucosa moist, no lesions. thin. pale CTA RRR S1S2 Abd NT ND, no spleen Neuro 3-4/5 strength, CN 2-12 intact and normal mentation. did now walk MRI - negative but done without contrast. Assessment: []Progressive weakness after induction therapy for recurrent DLBCL. PT report shows marked decline from last clinic visit when he was fully mobile. Now with continued decrease in blood counts. He is at very high risk of recurrence and had decided against consultative stem cell transplant. Differential: BUNG REMOVER lymphoma, tumor burden in marrow, viral syndrome, primary neurological disease. If reccurent lymphoma as I suspect, he is not a candidate for therapy, consider hospice home or in residence. Plan: []1. Given dropping blood counts, bone marrow biopsy today. 2. If negative, LP for BUNG REMOVER disease 3. Tx 2 U PRBC 4. Hold on hospice consult until we have definitive diagnosis. PROCEDURE NOTE: BmBX, usual technique, core and aspirate, flow cytometry sent. EBL 0 and no complications
[2017-08-25] MEDS: Acetaminophen TAB* 325 MG PO PRN (14:29)
[2017-08-25] MEDS: QUEtiapine TAB* 100 MG PO SCH (21:52)
[2017-08-26] MEDS: NS 0.9% 1000 ML* 1,000 ML IV SCH ×2 (03:27→13:40)
[2017-08-26] MEDS: Heparin VIAL(*) 5000 UNITS/ML VIAL (FIVE THOUSAND) SUBCUT SCH ×3 (06:14→21:36)
[2017-08-26] MEDS: Potassium Chlor TAB* 20 MEQ TAB.ER PO SCH (07:17)
[2017-08-26] MEDS ORDERED: fentaNYL PATCH 12 MCG/HR TRANSDERM SCH (12:00)
[2017-08-26 15:01] LABS: INR 0.9 (0.77-1.02)
[2017-08-26] MEDS ORDERED: fentaNYL PATCH 25 MCG/HR TRANSDERM SCH (18:28)
[2017-08-26] MEDS ORDERED: HYDROmorphone INJ* 2 MG/ML CARPUJECT SYRINGE IV SLOW PU PRN (18:29)
--- NOTE | 2017-08-26 18:40 | PN ---
Progress Note - Progress Note Date of Service: 08/26/17 SOAP: Subjective: []Continued pain, OZUNA. Weak and cannot get out of bed. No fevers. Not eating. Acetaminophen (Tylenol Tab*) 650 mg PO Q4H PRN PRN Reason: FEVER/PAIN Last Admin: 08/25/17 14:29 Dose: 650 mg Fentanyl (Duragesic Patch 12 Mcg/Hr *) 25 mcg TRANSDERM Q72H [facility] Heparin Sodium (Porcine) (Heparin Vial(*)) 5,000 units SUBCUT Q8HR [facility] Last Admin: 08/26/17 14:02 Dose: Not Given Hydromorphone HCl (Dilaudid Inj*) 2 mg IV SLOW PU Q4H PRN PRN Reason: PAIN Dexamethasone Sodium Phosphate (8 mg/ Sodium Chloride) 52 mls @ 208 mls/hr IVPB TID [facility] Ondansetron HCl (Zofran Inj*) 4 mg IV Q6H PRN PRN Reason: NAUSEA Last Admin: 08/24/17 15:04 Dose: 4 mg Pharmacy Profile Note (Fentanyl Patch Check Q Shift) 1 note N/A 0700,1900 [facility] Potassium Chloride (Klor Con Er Tab*) 20 meq PO DAILY [facility] Last Admin: 08/26/17 07:17 Dose: 20 meq Prochlorperazine (Compazine Tab*) 10 mg PO Q6H PRN PRN Reason: NAUSEA Quetiapine Fumarate (Seroquel Tab*) 100 mg PO BEDTIME [facility] Last Admin: 08/25/17 21:52 Dose: 100 mg Objective: [] Vital Signs Temp Pulse Resp BP Pulse Ox 98.3 F 66 16 156/82 97 08/26/17 15:41 08/26/17 15:41 08/26/17 15:41 08/26/17 15:41 08/26/17 15:41 HEENT: Mucosa moist, no lesions. thin. pale CTA RRR S1S2 Abd NT ND, no spleen Neuro 3-4/5 strength, CN 2-12 intact and normal mentation. did now walk MRI - negative but done without contrast. 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 Discussed with patient, son and . Given combination of OIL PIPE INSPECTOR disease and pancytopenia he is not a candidate for further therapy. Prognosis guarded, days to a few weeks. I expect continued deterioration and increased needs for pain medication. Our goal is comfort care , time with family. Family understands, they are call in relatives. Will follow in hospital over weekend at [facility] until home support can be arranged. If stable on Tuesday home hospice. Plan: []1. Increase Fentanyl to 25 mcg and Dilaudid 2 mg IV q 4 prn for pain. 2. Dexamethasone 8 mg IV TID. 3. DNR/DNI 4. Eat as he can but will not push food 5. Stop CI IVF. time with patient and chart 60 min through day
[2017-08-26] MEDS: fentaNYL Patch Check Q Shift 1 NOTE SCH (18:56)
[2017-08-26] MEDS: Dexamethasone IV* 4 MG/ML 1 ML (4 MG) IV SLOW PU SCH (21:00)
[2017-08-26] MEDS ORDERED: Dexamethasone IV* 8 MG in NS 0.9% 50 ML* 50 ML IVPB SCH (21:00)
[2017-08-26] MEDS: QUEtiapine TAB* 100 MG PO SCH (21:01)
[2017-08-27 06:07] LABS: EGFR Non-African American 74.2 (>60)
[2017-08-27] MEDS: Heparin VIAL(*) 5000 UNITS/ML VIAL (FIVE THOUSAND) SUBCUT SCH ×2 (06:10→12:06)
[2017-08-27 06:12] LABS: ABS Basophils 0 10^3/ul (0-0.2); ABS Eosinophils 0 10^3/ul (0-0.6); ABS Lymphocytes 0.2 10^3/ul (1.0-4.8); ABS Monocytes 0.2 10^3/ul (0-0.8); ABS Neutrophils 2.5 10^3/ul (1.5-7.7); ABS Nucleated RBC 0 10^3/ul; Eosinophil % 0 % (0-6); Hematocrit 32 % (42-52); Lymphocyte % 5.6 % (25-47); Mean Corpuscular HGB Conc 34 g/dl (31-36); Mean Corpuscular Hemoglobin 31 pg (27-31); Mean Corpuscular Volume 92 fL (80-94); Mean Platelet Volume 8 um3 (7.4-10.4); Nucleated Red Blood Cells % 0; Platelet Count 117 10^3/ul (150-450); Red Blood Count 3.51 10^6/ul (4.0-5.4); Red Cell Distribution Width 25 % (10.5-15); White Blood Count 2.9 10^3/ul (3.5-10.8)
[2017-08-27] MEDS: fentaNYL Patch Check Q Shift 1 NOTE SCH (07:19)
[2017-08-27 07:46] VITALS: BP 153/79
[2017-08-27] MEDS: Dexamethasone IV* 4 MG/ML 1 ML (4 MG) IV SLOW PU SCH ×2 (08:48→13:06)
[2017-08-27] MEDS: Potassium Chlor TAB* 20 MEQ TAB.ER PO SCH (08:48)
[2017-08-27] MEDS ORDERED: predniSONE TAB* 20 MG PO SCH (09:00)
--- NOTE | 2017-08-27 11:02 | PN ---
Progress Note - Progress Note Date of Service: 08/27/17 SOAP: Subjective: []more comfortable. Has difficulty with vision. not eating. no nausea. family wants to take him home. Acetaminophen (Tylenol Tab*) 650 mg PO Q4H PRN PRN Reason: FEVER/PAIN Last Admin: 08/25/17 14:29 Dose: 650 mg Dexamethasone Sodium Phosphate (Decadron Iv*) 8 mg IV SLOW PU TID [facility] Last Admin: 08/27/17 08:48 Dose: 8 mg Fentanyl (Duragesic Patch 25 Mcg/Hr*) 25 mcg TRANSDERM Q72H [facility] Last Admin: 08/26/17 21:01 Dose: 25 mcg Heparin Sodium (Porcine) (Heparin Vial(*)) 5,000 units SUBCUT Q8HR [facility] Last Admin: 08/27/17 06:10 Dose: Not Given Hydromorphone HCl (Dilaudid Inj*) 2 mg IV SLOW PU Q4H PRN PRN Reason: PAIN Ondansetron HCl (Zofran Inj*) 4 mg IV Q6H PRN PRN Reason: NAUSEA Last Admin: 08/24/17 15:04 Dose: 4 mg Pharmacy Profile Note (Fentanyl Patch Check Q Shift) 1 note N/A 0700,1900 [facility] Last Admin: 08/27/17 07:19 Dose: 1 note Potassium Chloride (Klor Con Er Tab*) 20 meq PO DAILY [facility] Last Admin: 08/27/17 08:48 Dose: 20 meq Prochlorperazine (Compazine Tab*) 10 mg PO Q6H PRN PRN Reason: NAUSEA Quetiapine Fumarate (Seroquel Tab*) 100 mg PO BEDTIME [facility] Last Admin: 08/26/17 21:01 Dose: 100 mg Objective: [] Vital Signs Temp Pulse Resp BP Pulse Ox 98.0 F 64 14 153/79 100 08/27/17 07:14 08/27/17 07:14 08/27/17 07:48 08/27/17 07:14 08/27/17 07:14 HEENT: Mucosa moist, no lesions. thin. pale CTA RRR S1S2 Abd NT ND, no spleen Neuro 3-4/5 strength, CN 2-12 intact and normal mentation. did now walk MRI - negative but done without contrast. 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 He is on palliative care and is better today on steroids. Family would like to take him home and I think this is reasonable. Discussed with son prognosis and possible evolution of symptoms. Will try to have a weekend hospice admission, if cannot be done and additional issues, can come back to hospital. Plan: []1. Discharge home now. 2. Dexamethasone 8 mg po TID. 3. DNR/DNI 4. Increase Fentanly to 50 mcg 5. Ativan 1-2 mg prn for adjitation. 6. Zofran PRN for nausea time with patient and chart 40 min through day
== END 2017-08-27 14:45 | disposition home or self-care (01) | DRG 841 ==
LOC: ED 20:50 → MED 08-24 05:10 → OBSVTOIN 08-25 11:00
PROVIDERS: ADMIT Hospitalist; ATTEND Internal Medicine Hematology & Oncology
PROC: 07DR3ZX Extraction of Iliac Bone Marrow, Percutaneous Approach, Diagnostic (ICD-10-PCS; principal; 2017-08-25)
PROC: 009U3ZX Drainage of Spinal Canal, Percutaneous Approach, Diagnostic (ICD-10-PCS; 2017-08-26)
PROC: 30233N1 Transfusion of Nonautologous Red Blood Cells into Peripheral Vein, Percutaneous Approach (ICD-10-PCS; 2017-08-26)
DX: C83.39 Diffuse large B-cell lymphoma, extranodal and solid organ sites (principal); R64 Cachexia; D61.818 Other pancytopenia; Z68.1 Body mass index [BMI] 19.9 or less, adult; I10 Essential (primary) hypertension; E78.5 Hyperlipidemia, unspecified; G47.00 Insomnia, unspecified; F32.9 Major depressive disorder, single episode, unspecified; R40.2362 Coma scale, best motor response, obeys commands, at arrival to emergency department; R40.2142 Coma scale, eyes open, spontaneous, at arrival to emergency department; R40.2252 Coma scale, best verbal response, oriented, at arrival to emergency department; R29.700 NIHSS score 0; Z66 Do not resuscitate; Z82.49 Family history of ischemic heart disease and other diseases of the circulatory system; Z87.891 Personal history of nicotine dependence; Z92.21 Personal history of antineoplastic chemotherapy
CPT/HCPCS: 36415; 38222; 70450; 70551; 71046; 74177; 80053; 81003; 81015; 82232; 82550; 82607; 82668; 82945; 83605; 83615; 83735; 84157; 84443; 84484; 85025; 85027; 85060; 85097; 85610; 85652; 85730; 86140; 86850; 86900; 86901; 86922; 88112; 88184; 88185; 88187; 88188; 88237; 88305; 88311; 88313; 89051; 93005; 99232; 99233; 99239; 99285; A9270-GY; G0378; G8978-GP-CI; G8979-GP-CH; J1100; J1644; J2405; J2765; P9040; Q9967